=== PATIENT | female | born 1980 | race American Indian/Alaskan Native ===

== ENCOUNTER 2018-01-15 07:10 | Emergency (ER) | payer BC ==
[2018-01-15 07:15] VITALS: O2SAT 100
--- NOTE | 2018-01-15 08:15 | C.PDOC ---
History Of Present Illness 37-year-old female, PMHx includes Anemia and PCOS, presents to the emergency department with complaints of irregular vaginal bleeding and suprapubic cramping. Patient states she was recently diagnosed with PCOS, and placed on Provera by her doctor. Patient states she took the medication for ten days, after which she ran out, and the bleeding returned associated with some light- headedness. Patient notes last night she developed suprapubic cramping, prompting visit. She took Motrin 800mg with relief. She is pending an appointment with her OBGYN "mid-January." She denies fever, nausea/vomiting, back pain, chest pain, shortness of breath or any other associated symptoms. No other complaints at this time. Time Seen by Provider: 01/15/18 07:50 Chief Complaint (Nursing): Abdominal Pain History Per: Patient History/Exam Limitations: no limitations Current Symptoms Are (Timing): Still Present Past Medical History Reviewed: Historical Data, Nursing Documentation, Vital Signs Vital Signs: Last Vital Signs Temp 98.7 F 01/15/18 07:14 Pulse 95 H 01/15/18 07:14 Resp 18 01/15/18 07:14 BP 138/89 01/15/18 07:14 Pulse Ox 100 01/15/18 07:14 - Medical History PMH: Anemia, Migraine Family History: States: No Known Family Hx - Social History Hx Alcohol Use: No Hx Substance Use: No - Immunization History Hx Tetanus Toxoid Vaccination: No Hx Influenza Vaccination: No Hx Pneumococcal Vaccination: No Review Of Systems Constitutional: Negative for: Fever Cardiovascular: Positive for: Light Headedness Respiratory: Negative for: Shortness of Breath Gastrointestinal: Positive for: Abdominal Pain. Negative for: Nausea, Vomiting Genitourinary: Positive for: Vaginal Bleeding Skin: Negative for: Rash Physical Exam - Physical Exam Appears: Non-toxic, No Acute Distress Skin: Warm, Dry, No Rash Head: Atraumatic, Normacephalic Eye(s): bilateral: Normal Inspection, PERRL Nose: Normal Oral Mucosa: Moist Lips: Normal Appearing Neck: Normal ROM Chest: Symmetrical Cardiovascular: Rhythm Regular Respiratory: Normal Breath Sounds, No Accessory Muscle Use Gastrointestinal/Abdominal: Soft, No Tenderness, No Guarding, No Rebound Extremity: Normal ROM, No Deformity Neurological/Psych: Oriented x3, Normal Speech ED Course And Treatment - Laboratory Results Result Diagrams: 01/15/18 09:03 01/15/18 09:03 O2 Sat by Pulse Oximetry: 100 Pulse Ox Interpretation: Normal (RA) Medical Decision Making Medical Decision Making: Plan: * Bloodwork * IVF, Toradol * HCG/UA * Reassess and Disposition On re-exam, the patient reports improvement of symptoms. Lungs are CTA, heart is RRR, abdomen is soft, non-tender and tolerating PO well. Ambulatory in the ED with steady gait. Follow up with the medical doctor within 1-2 days. Return if worsened. Disposition - Disposition [facility] Disposition: HOME/ ROUTINE Disposition Time: 12:33 Condition: STABLE Additional Instructions: Follow up with the medical doctor within 1-2 days. Return if worsened. Prescriptions: MedroxyPROGESTERone [Provera] 1 tab PO DAILY #18 tab Naproxen [Naprosyn] 500 mg PO BID #20 tab Instructions: Uterine Fibroids Forms: [facility] (Green[place]ic), Work Excuse - Clinical Impression Clinical Impression: Uterine fibroid - Scribe Statement The provider has reviewed the documentation as recorded by the Scribe ([place]) All medical record entries made by the Scribe were at my direction and personally dictated by me. I have reviewed the chart and agree that the record accurately reflects my personal performance of the history, physical exam, medical decision making, and the department course for this patient. I have also personally directed, reviewed, and agree with the discharge instructions and disposition.
[2018-01-15] MEDS ORDERED: Sodium Chloride 0.9% 1,000 ML IV ONE (08:17)
[2018-01-15] MEDS ORDERED: Sodium Chloride 0.9% 1,000 ML ONE (08:39)
[2018-01-15 09:07] LABS: BASO % 0.6 % (0.0-2.0); EOS # 0.1 K/uL (0.0-0.7); EOS % 2.8 % (0.0-4.0); HEMOGLOBIN 9.1 g/dL (11.0-16.0); LYMPH # 1.1 K/uL (1.0-4.3); LYMPH % 28.1 % (20.0-40.0); MEAN CORPUSCULAR HGB CONC 32.4 g/dL (33.0-37.0); MEAN PLATELET VOLUME 7.4 fL (7.2-11.7); MONO # 0.3 K/uL (0.0-0.8); MONO % 7.8 % (0.0-10.0); NEUT # 2.4 K/uL (1.8-7.0); NEUT % 60.7 % (50.0-75.0); NRBC % 0.1 % (0.0-2.0); RBC 3.51 Mil/uL (3.80-5.20); RED CELL DISTRIBUTION WIDTH 15.9 % (11.5-14.5); WHITE BLOOD COUNT 3.9 K/uL (4.8-10.8)
[2018-01-15 09:14] LABS: HCG,QUALITATIVE URINE NEGATIVE (NEGATIVE)
[2018-01-15 09:19] LABS: ALB/GLOB RATIO 1.2 (1.0-2.1); ALBUMIN 4.1 g/dL (3.5-5.0); ALT/SGPT 29 U/L (9-52); AST/SGOT 19 U/L (14-36); BLOOD UREA NITROGEN 15 mg/dL (7-17); GFR NON-AFRICAN AMERICAN > 60
[2018-01-15 09:20] LABS: SQUAMOUS EPITHIAL 4 /hpf (0-5); URINE BILIRUBIN NEGATIVE (NEGATIVE); URINE BLOOD 3+ (NEGATIVE); URINE CLARITY Hazy (Clear); URINE COLOR Yellow (YELLOW); URINE GLUCOSE (UA) NORMAL (Normal); URINE LEUKOCYTE ESTERASE NEG Leu/uL (Negative); URINE PROTEIN 2+ mg/dL (NEGATIVE); URINE UROBILINOGEN NORMAL mg/dL (0.2-1.0)
--- NOTE | 2018-01-15 11:42 | US ---
Date of service: 01/15/2018 HISTORY: pelvic pain, vag bleed COMPARISON: None available. TECHNIQUE: Transabdominal and transvaginal pelvic ultrasound was performed. FINDINGS: UTERUS: Measures 11.9 x 9.6 x 6.7 cm. Retroverted and enlarged. There is a 4.2 x 2.9 x 4.2 cm fundal fibroid, 3.5 x 2.5 x 3.2 anterior wall fibroid in the lower uterine segment and 3.6 x 53.5 x 3.5 cm posterior wall fibroid in the lower uterine segment. ENDOMETRIUM: Measures 13 mm in diameter. Normal in appearance. CERVIX: No cervical abnormality identified. RIGHT OVARY: Measures 3.8 x 2.3 x 2.8 cm. No solid mass. Normal flow. There is a 2.3 x 1.3 x 2.3 cm simple cyst. LEFT OVARY: Measures 4.3 x 2.6 x 2.9 cm. No solid mass. Normal flow. FREE FLUID: There is small amount of free fluid in the cul de sac, likely physiologic. OTHER FINDINGS: None. IMPRESSION: Enlarged retroverted fibroid uterus, the largest fundal fibroid measures 4.2 cm in maximum dimension. 2.3 cm simple cyst in the right ovary.
[2018-01-15 12:57] VITALS: BP 129/87; PULSE 79; RESP 17; TEMP 98.8
== END 2018-01-15 12:57 | disposition home or self-care (01) ==
LOC: C.ER 07:10
DX: D25.9 Leiomyoma of uterus, unspecified (principal)
CPT/HCPCS: 76830; 76856; 80053; 81001; 84703; 85025; 96361; 96374; 99285; J1885; J7030